=== PATIENT | male | born 1970 | race Caucasian/White ===

== ENCOUNTER 2024-03-31 13:25 | Emergency (ER) | payer SELFPAY ==
[2024-03-31 13:26] VITALS: BP 188/113; PULSE 92; RESP 15; TEMP 37.1; O2SAT 95; BMI 38.9
--- NOTE | 2024-03-31 13:35 | ED_ITS ---
HPI - Extremity Problem 2 General: Chief complaint: Extremity Injury, Lower Stated complaint: OLVIN lower leg/foot swelling Time Seen by Provider: 03/31/24 13:30 History of Present Illness: 53-year-old male presents with concerns for lower leg swelling. Patient reports that he feels like his right leg is swollen right around the ankle. Patient reports that he out of his medications. Patient reports he recently moved here from [place] has been out of a lot of his meds for about the last 3 weeks. He is unsure exactly what medication he is out of. He was prescribed atorvastatin, lisinopril, furosemide and Coreg. He is unsure of these doses. Associated symptoms: Deny chest pain, fever(s) or rash Related Data Previous Rx's Medication Instructions Recorded carvedilol 12.5 mg tablet (Coreg) 12.5 mg PO BID #60 tabs 03/31/24 colchicine 0.6 mg capsule See Rx Instructions .Route 03/31/24 .COMPLEX #3 caps lisinopril 10 mg tablet 10 mg PO DAILY #30 tabs 03/31/24 Allergies Allergy/AdvReac Type Severity Reaction Status Date / Time ibuprofen Allergy Unknown Verified 03/31/24 13:34 Review of Systems 2 Const: Denies: fever(s) or chills Card: Reports: swelling of feet/ankles; Denies: chest pain Resp: Denies: dyspnea or productive cough GI: Denies: abdominal pain, nausea or vomiting : Denies: flank pain or difficulty urinating Musc: Denies: neck pain or back pain Skin/Breast: Denies: rash Neuro: Denies: headache(s) or dizziness Physical Exam 2 Const: COMMON NORMALS: no acute distress and patient oriented x3 Resp: COMMON NORMALS: normal respiratory effort, No use of accessory muscles and clear to auscultation bilaterally EFFORT & INSPECTION: Yes able to speak in complete sentences AUSCULTATION: clear to auscultation bilaterally Cardio: COMMON NORMALS: regular rate, regular rhythm and Peripheral pulses 2+ throughout RATE: regular rate RHYTHM: regular rhythm PERIPHERAL PULSES: Peripheral pulses 2+ throughout GI: COMMON NORMALS: Soft to palpation and non-tender PALPATION: Yes Soft to palpation Extremity: COMMON NORMALS: full ROM and capillary refill normal OTHER: Very minimal if any swelling to the right ankle noted Neuro: COMMON NORMALS: patient oriented x3, moves all extremities and no focal motor deficits Psych: COMMON NORMALS: mental status grossly normal, cooperative and speech normal SPEECH: Yes normal speech Course 2 Vital Signs: Vital signs: Vital Signs Temperature 98.8 F 03/31/24 13:26 Pulse Rate 92 03/31/24 13:26 Respiratory Rate 15 03/31/24 13:26 Blood Pressure 188/113 03/31/24 13:26 Pulse Oximetry 95 03/31/24 13:26 Oxygen Delivery Me thod Room Air 03/31/24 13:26 MDM - Extremity (Nontraumatic) Medical Decision Making Patient diagnosis is ordered reviewed and interpreted by me. He does have a slight increase in his white count along with a slight increase in uric acid. Physical exam is much more consistent with a gout versus his concerns for edema due to underlying heart failure. Patient is currently out of most of his home medications. I will prescribe him lisinopril and Coreg for his elevated blood pressure. I will also prescribe him colchicine for gout. Recommend he establish care and follow-up with a primary care provider as soon as possible as he has been here a couple months and been out of his meds for a while. Patient stable and discharged home. Lab Data 03/31/24 14:04 03/31/24 14:04 Radiology Impressions Ankle X-Ray 03/31/24 13:48 IMPRESSION: 1. No evidence of acute fracture or subluxation. If there is concern for ligamentous or tendon pathology, follow-up outpatient MRI may be helpful. Laboratory Results WBC 11.96 10^3/uL (3.29-11.43) H 03/31/24 14:04 RBC 5.25 10^6/uL (3.85-5.65) 03/31/24 14:04 Hgb 14.60 g/dL (11.27-16.99) 03/31/24 14:04 Hct 44.8 % (37-53) 03/31/24 14:04 MCV 85.3 fl (82-101) 03/31/24 14:04 MCH 27.8 pg (27-33) 03/31/24 14:04 MCHC 32.6 g/dL (30-55) 03/31/24 14:04 RDW 13.1 % (12.1-15.1) 03/31/24 14:04 Plt Count 278 10^3/cmm (157-399) 03/31/24 14:04 MPV 11.3 fL (7.4-10.4) H 03/31/24 14:04 Neut % (Auto) 75.4 % 03/31/24 14:04 Lymph % (Auto) 12.9 % 03/31/24 14:04 [place] % (Auto) 10.6 % 03/31/24 14:04 Eos % (Auto) 0.4 % 03/31/24 14:04 Baso % (Auto) 0.3 % 03/31/24 14:04 Neut # (Auto) 9.01 10^3/uL (1.8-7.7) H 03/31/24 14:04 Lymph # (Auto) 1.5 10^3/uL (0.8-4.8) 03/31/24 14:04 [place] # (Auto) 1.3 10^3/uL (0.2-0.9) H 03/31/24 14:04 Eos # (Auto) 0.1 10^3/uL (0.0-0.8) 03/31/24 14:04 Baso # (Auto) 0.0 10^3/uL (0.0-0.1) 03/31/24 14:04 Nucleated RBC % (auto) 0 % 03/31/24 14:04 Nucleated RBCs # 0.0 /100WBC 03/31/24 14:04 Sodium 137 mmol/L (136-145) 03/31/24 14:04 Potassium 4.1 mmol/L (3.5-5.1) 03/31/24 14:04 Chloride 101 mmol/L (98-107) 03/31/24 14:04 Carbon Dioxide 24 mmol/L (22-29) 03/31/24 14:04 Anion Gap 16.1 (5-19) 03/31/24 14:04 BUN 18 mg/dL (6-20) 03/31/24 14:04 Creatinine 0.8 mg/dL (0.7-1.2) 03/31/24 14:04 GFR Calculation 101.9 mL/min (90-130) 03/31/24 14:04 Glucose 134 mg/dL (65-115) H 03/31/24 14:04 Calculated Osmolality 288 mOsm/kg (285-295) 03/31/24 14:04 Uric Acid 7.9 mg/dL (3.4-7.0) H 03/31/24 14:04 Calcium 9.1 mg/dL (8.5-10.5) 03/31/24 14:04 Magnesium 1.9 mg/dL (1.7-2.3) 03/31/24 14:04 All radiology interpretation(s) finalized by discharge Discharge Plan Discharge Patient Disposition: Home Clinical Impression: Gout Qualifiers: Gout site: ankle Chronicity: acute Laterality: right Hypertension Qualifiers: Hypertension type: primary hypertension Qualified Code(s): I10 - Essential (primary) hypertension Condition: Stable Prescriptions: New lisinopril 10 mg tablet 10 mg PO DAILY Qty: 30 0RF Coreg 12.5 mg tablet 12.5 mg PO BID Qty: 60 0RF Rx Instructions: must administer with a meal/food colchicine 0.6 mg capsule See Rx Instructions .ROUTE .COMPLEX Qty: 3 0RF Rx Instructions: 0.6 mg orally ;2 tablets then 1 tablet 1 hr later Discharge Orders: Discharge ED (Routine); Ordered 03/31/24 Ordered By: Justice Torres Discharge Diet: Usual diet Discharge Activity: Resume usual activity Patient Instructions: Gout (ED), Hypertension (ED), Opioid Safety, Pain Management Activity Restrictions/Additional Instructions: Please establish care and follow-up with a primary care provider soon as possible. Coding Level of Care Code ED [employer] for Meir Curry
--- NOTE | 2024-03-31 13:48 | XRR_ITS ---
PROCEDURE INFORMATION: Exam: XR Right Ankle Exam date and time: 03/31/2024 2:10 PM Age: 53 years old Clinical indication: Swelling or effusion of joint; Ankle TECHNIQUE: Imaging protocol: Radiologic exam of the right ankle. Views: 1 or 2 views. COMPARISON: No relevant prior studies available. FINDINGS: Bones/joints: Ankle mortise is intact without evidence of acute fracture or subluxation. Mild tibiotalar osteoarthritis. Achilles enthesophyte. If there is concern for Achilles tendon pathology, follow-up outpatient MRI may be helpful. Moderate talonavicular osteoarthritis. Soft tissues: Mild soft tissue edema. Vascular calcifications noted. Possible small tibiotalar joint effusion. XR/XR ankle RT 2V [id number] IMPRESSION: 1. No evidence of acute fracture or subluxation. If there is concern for ligamentous or tendon pathology, follow-up outpatient MRI may be helpful.
[2024-03-31 14:13] LABS: Basophils % 0.3 %; Eosinophils # 0.1 10^3/uL (0.0-0.8); Eosinophils % 0.4 %; Hematocrit 44.8 % (37-53); Lymphocytes # 1.5 10^3/uL (0.8-4.8); Lymphocytes % 12.9 %; Mean Corpuscular HGB Conc 32.6 g/dL (30-55); Mean Corpuscular Hemoglobin 27.8 pg (27-33); Mean Corpuscular Volume 85.3 fl (82-101); Mean Platelet Volume 11.3 fL (7.4-10.4); Monocytes # 1.3 10^3/uL (0.2-0.9); Monocytes % 10.6 %; Neutrophils # 9.01 10^3/uL (1.8-7.7); Neutrophils % 75.4 %; Nucleated Red Blood Cells % 0 %; Platelet Count 278 10^3/cmm (157-399); Red Blood Count 5.25 10^6/uL (3.85-5.65); Red Cell Distribution Width 13.1 % (12.1-15.1); White Blood Count 11.96 10^3/uL (3.29-11.43)
[2024-03-31 14:31] LABS: Anion Gap 16.1 (5-19); Blood Urea Nitrogen 18 mg/dL (6-20); Calcium 9.1 mg/dL (8.5-10.5); Carbon Dioxide 24 mmol/L (22-29); Chloride 101 mmol/L (98-107); Creatinine Clr Calc Pharmacy 114.4268; Glomerular Filtration Rate 101.9 mL/min (90-130); Glucose 134 mg/dL (65-115); Magnesium 1.9 mg/dL (1.7-2.3); Osmolality Calculated 288 mOsm/kg (285-295); Potassium 4.1 mmol/L (3.5-5.1); Sodium 137 mmol/L (136-145); Uric Acid 7.9 mg/dL (3.4-7.0)
[2024-03-31 15:41] VITALS: BP 206/159; PULSE 86; O2SAT 96
== END 2024-03-31 15:43 | disposition home or self-care (01) ==
PROVIDERS: Emergency Provider Student in an Organized Health Care Education/Training Program
DX: M10.9 Gout, unspecified (principal); I10 Essential (primary) hypertension
CPT/HCPCS: 36415; 73600; 80048; 83735; 84550; 85025; 99284